=== PATIENT | female | born 1930 | race Caucasian/White ===

== ENCOUNTER 2019-07-10 23:26 | Emergency (ER) | payer BC, MEDICARE ==
[~2019-07-10] VITALS: Ht 162.6 cm; Wt 54.0 kg
[2019-07-10 23:48] VITALS: BP 122/78
--- NOTE | 2019-07-11 00:44 | NUR ---
AT BEDSIDE FOR EVAL
[2019-07-11] MEDS ORDERED: ACETAMINOPHEN 325 MG TABLET PO ONE (01:00)
[2019-07-11] MEDS ORDERED: ACETAMINOPHEN 325 MG TABLET ONE (01:03)
--- NOTE | 2019-07-11 04:12 | NUR ---
ARRANGED S TRANSPORT WITH [facility] TRIP NUMBER: [id number], ETA [id number].
--- NOTE | 2019-07-11 04:18 | NUR ---
[facility] CANCELLED, [facility] ETA 30MINS.
== END 2019-07-11 05:30 | disposition home or self-care (01) ==
LOC: ER 23:37
DX: G56.02 Carpal tunnel syndrome, left upper limb (principal); I10 Essential (primary) hypertension